=== PATIENT | male | born 2005 | race Caucasian/White ===

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

== ENCOUNTER 2024-05-26 09:40 | Emergency (ER) | payer BC, OTHER ==
[2024-05-26] MEDS ORDERED: cefTRIAXone 1,000 MG VIAL (IM USE) IM ONE (12:49)
== END 2024-05-26 13:05 | disposition home or self-care (01) ==
LOC: EC 09:40
DX: R30.0 Dysuria (principal)
CPT/HCPCS: 99283; 96372; J0696